=== PATIENT | female | born 1935 | race American Indian/Alaskan Native ===

== ENCOUNTER 2017-06-14 03:14 | Emergency (ER) | payer MEDICARE ==
[2017-06-14 04:13] VITALS: BP 186/88
--- NOTE | 2017-06-14 04:32 | Emergency Department Report ---
ED General Adult HPI - General Chief complaint: Dyspnea/Respdistress Stated complaint: DENNIS Time Seen by Provider: 06/14/17 03:21 Source: EMS (verbal report received from EMS.ems notes not available at time of chart dictation) Mode of arrival: Stretcher Limitations: Altered Mental Status - History of Present Illness Initial comments: This is an 82-year-old female who was previously unknown to this provider, who is brought to the hospital by EMS with a complaint of respiratory distress. EMS reports that they found the patient in bed in severe respiratory distress. They further report that the patient had difficulty breathing, and was started on positive pressure ventilation in the field. Upon arrival to the ER, patient was somnolent, altered, and not protecting her airway. Furthermore, she was found to be saturating at 47% on positive pressure ventilation. Given obvious respiratory failure and inability to protect her airway, decision was made to intubate. Patient was switched over to a nasal cannula at 15 L/m, and then received aggressive bag valve mask ventilation from respiratory therapy. Patient was able to be bagged to a saturation of 97%. She was then induced with 100 mg of ketamine. Patient's jaw had good laxity, and a Christine 3 laryngoscope was inserted, and the hypopharynx was visualized. However, patient was in laryngospasm, and a 7.5 endotracheal tube was not able to be passed secondary to spasm. Therefore, the patient was then paralyzed with 100 mg of rocuronium. Patient's laryngospasm resolved, and the patient was intubated without difficulty. Shortly after intubation, patient experienced episode of bradycardia with heart rate in the 40s. Initially pulses were felt with a good blood pressure, but shortly thereafter, the patient became pulseless. Patient was resuscitated aggressively and extensively as per ACLS interventions. Patient shocked multiple times, and received multiple rounds of vasoactive medication. Unfortunately, pulses cannot be obtained, and serial bedside ultrasound does not demonstrate coordinated ventricular activity, nor did he demonstrate pulses. Resuscitation efforts were then terminated secondary to prolonged downtime, prolonged pulselessness, and medical futility. Family is at the bedside, and they were informed of patient's demise. -: Gradual Consistency: constant Improves with: none Worsens with: none Associated Symptoms: confusion, shortness of breath, weakness ED Review of Systems ROS: Stated complaint: DENNIS Other details as noted in HPI Comment: Unobtainable due to pts medical conditions ED Physical Exam - General Limitations: Altered Mental Status, Physical Limitation General appearance: obtunded - Eye Eye exam: Present: PERRL - ENT ENT exam: Present: mucous membranes dry - Neck Neck exam: Absent: meningismus - Respiratory Respiratory exam: Present: respiratory distress, wheezes, rales, rhonchi - Cardiovascular Cardiovascular Exam: Present: tachycardia - GI/Abdominal GI/Abdominal exam: Present: soft, normal bowel sounds. Absent: distended, tenderness, guarding, rebound, rigid - Rectal Rectal exam: Present: normal inspection - External exam: Present: normal external exam - Extremities Exam Extremities exam: Present: normal inspection. Absent: tenderness, normal capillary refill, pedal edema, joint swelling, calf tenderness - Back Exam Back exam: Present: normal inspection. Absent: CVA tenderness (R), paraspinal tenderness - Neurological Exam Neurological exam: Present: altered - Psychiatric Psychiatric exam: Present: other - Skin Skin exam: Present: dry ED Course Vital Signs 06/14/17 04:11 Temperature 99.8 F H Pulse Rate 63 Respiratory 18 Rate Blood Pressure 186/88 O2 Sat by Pulse 46 L Oximetry - Intubation Time Out Performed: Yes Sedative: Ketamine Mg Given: 100 Paralytic: Rocuronium Mg Given: 100 Laryngoscope: Christine Size: 3 ET Tube Size: 7.5 Tube Secured Location: teeth Tube Placement Confirmation: visualized tube passing t Patient Tolerated Procedure: well Intubation Complications: difficult intubation Additional Comments: Please see history of present illness for the details of the patient's intubation procedure note. Critical Care Time: Yes Critical care time in (mins) excluding proc time.: 35 Critical care attestation.: If time is entered above; I have spent that time in minutes in the direct care of this critically ill patient, excluding procedure time. ED Disposition Clinical Impression: Respiratory arrest Disposition: DC-20 Is pt being admited?: No Does the pt Need Aspirin: No Condition: Undetermined Referrals: CASI EWRNER MD [Primary Care Provider] - 3-5 Days
== END 2017-06-14 08:25 ==
LOC: ED 03:14
DX: R09.2 Respiratory arrest (principal)
CPT/HCPCS: 82962; 99291